=== PATIENT | female | born 1955 | race Caucasian/White ===

== ENCOUNTER 2017-06-24 12:52 | Outpatient (CLI) | payer BC | END 2017-06-24 12:53 | disposition home or self-care (01) | LOC: BICMAMMO 12:52 | PROVIDERS: ATTEND Family Medicine | DX: Z12.31 Encounter for screening mammogram for malignant neoplasm of breast (principal); Z13.820 Encounter for screening for osteoporosis; Z80.3 Family history of malignant neoplasm of breast | CPT/HCPCS: 77063; 77067; 77080 ==

== ENCOUNTER 2018-07-27 13:41 | Outpatient (CLI) | payer BC ==
--- NOTE | 2018-07-27 16:02 | MMO ---
Bilateral MAMMO Bilat Screen [facility]. CLINICAL HISTORY: Patient is 63 years old and is seen for screening. The patient has the following family history of breast cancer: paternal grandmother. The patient has no personal history of cancer. VIEWS: The views performed were: bilateral craniocaudal with tomosynthesis and bilateral mediolateral oblique with tomosynthesis. FILMS COMPARED: The present examination has been compared to prior imaging studies performed at [facility] on 06/24/2017, and at [facility] on 06/19/2013 and 06/25/2015. MAMMOGRAM FINDINGS: There are scattered fibroglandular densities. Benign calcifications are noted bilaterally. Nodularity is stable. There are no suspicious masses, suspicious calcifications, or new areas of architectural distortion. IMPRESSION: THERE IS NO MAMMOGRAPHIC EVIDENCE OF MALIGNANCY. A ROUTINE FOLLOW-UP MAMMOGRAM IN 1 YEAR IS RECOMMENDED. THE RESULTS OF THIS EXAM WERE SENT TO THE PATIENT. ACR BI-RADS Category 2 - Benign finding MAMMOGRAPHY NOTE: 1. A negative mammogram report should not delay a biopsy if a dominant of clinically suspicious mass is present. 2. Approximately 10% to 15% of breast cancers are not detected by mammography. 3. Adenosis and dense breasts may obscure an underlying neoplasm.
--- NOTE | 2018-07-27 16:44 | BD ---
BONE DENSITOMETRY USING DEXA: Date: 07/27/18 HISTORY: Postmenopausal screening for osteoporosis. FINDINGS: Lumbar Spine: BMD (g/cm2) L1 1.321 T-Score: 3.0 Z-Score: 4.5 L2 1.387 T-Score: 3.3 Z-Score: 4.9 L3 1.296 T-Score: 1.9 Z-Score: 3.7 L4 1.091 T-Score: 0.3 Z-Score: 2.1 L1-L4 1.266 T-Score: 2.0 Z-Score: 3.7 Femoral Neck: 0.730 T-Score: -1.1 Z-Score: 0.4 Total Femur: 0.870 T-Score: -0.7 Z-Score: 0.6 There has been interval improvement of 3.1% in the bone mineral density of the lumbar spine and a red uction of 13.1% in the bone mineral density of the proximal femur since 06/25/15. The 10 year fracture risk for a major osteoporotic fracture is 8.1% and for a hip fracture is 0.6%. IMPRESSION: Osteopenia. POS: OFF
== END 2018-07-27 13:42 | disposition home or self-care (01) ==
LOC: BICMAMMO 13:41
PROVIDERS: ATTEND Family Medicine
DX: Z12.31 Encounter for screening mammogram for malignant neoplasm of breast (principal); Z13.820 Encounter for screening for osteoporosis; M85.89 Other specified disorders of bone density and structure, multiple sites; Z80.3 Family history of malignant neoplasm of breast
CPT/HCPCS: 77063; 77067; 77080

== ENCOUNTER 2018-08-22 15:54 | Outpatient (CLI) | payer BC ==
--- NOTE | 2018-08-22 16:13 | RAD ---
LEFT HIP 2 VIEWS: History: left hip pain FINDINGS: There are degenerative changes in the left hip joint. These are manifested blastoid formati on and joint space narrowing. No fracture or dislocation or bony destruction is identified. IMPRESSION: Left hip osteoarthritis.
--- NOTE | 2018-08-22 16:13 | RAD ---
RIGHT HIP 2 VIEWS: HISTORY: Right hip pain FINDINGS: There are degenerative changes in the right hip. No fracture, dislocation or bony destruction is iden tified. IMPRESSION: Right hip osteoarthritis
== END 2018-08-22 15:55 | disposition home or self-care (01) ==
LOC: BICRAD 15:54
PROVIDERS: ATTEND Family Medicine
DX: M25.552 Pain in left hip (principal); M25.551 Pain in right hip; M16.0 Bilateral primary osteoarthritis of hip

== ENCOUNTER 2020-05-19 05:27 | Inpatient (IN) | payer MEDICARE, BC ==
[2020-05-15 13:16] VITALS: BMI 24.5
[2020-05-19] MEDS ORDERED: Midazolam HCl 2 mg/2 ml Vial ONE (05:49)
[2020-05-19] MEDS ORDERED: Lidocaine 2% Jelly 5 ML TUBE ONE (05:49)
[2020-05-19] MEDS ORDERED: Ropivacaine 0.2% HCl/PF 20 ML ONE (05:49)
[2020-05-19] MEDS ORDERED: Fentanyl 100 MCG/2 ML VIAL ONE (05:49)
[2020-05-19] MEDS ORDERED: Sodium Chloride 0.9% 100 ML ONE (05:58)
[2020-05-19] MEDS ORDERED: Vancomycin 1 GM/200 ML BAG ONE (05:58)
[2020-05-19] MEDS ORDERED: Tranexamic Acid 1,000 MG/10 ML VIAL ONE (05:58)
[2020-05-19] MEDS ORDERED: Hydrocerin (Eucerin) Cream 120 gm Jar TOP PRN (08:45)
[2020-05-19] MEDS ORDERED: HYDROcodone/Acetaminophen 5/325 mg Tablet PO PRN ×2 (08:45)
[2020-05-19] MEDS ORDERED: traMADol HCl 50 MG TAB PO PRN ×2 (08:45)
[2020-05-19] MEDS ORDERED: Promethazine HCl 25 MG SUPP PR PRN (08:45)
[2020-05-19] MEDS ORDERED: diphenhydrAMINE 50 MG/ML VIAL IVP PRN (08:45)
[2020-05-19] MEDS ORDERED: Zolpidem Tartrate 5 MG TAB PO PRN ×2 (08:45→09:00)
[2020-05-19] MEDS ORDERED: Naloxone HCl 0.4 mg/ml Vial IVP PRN (08:45)
[2020-05-19] MEDS ORDERED: diphenhydrAMINE 50 MG/ML VIAL IM PRN (08:45)
[2020-05-19] MEDS ORDERED: Ondansetron PF 4 MG/2 ML Vial IVP PRN ×2 (08:45→09:00)
[2020-05-19] MEDS ORDERED: Naloxone HCl 0.4 mg/ml Vial IV PRN (08:45)
[2020-05-19] MEDS ORDERED: Promethazine HCl 25 MG/ML VIAL IM PRN ×2 (08:45→09:00)
[2020-05-19] MEDS ORDERED: Bupivacaine 0.25% 10 ML VIAL EPIDURAL PRN (08:45)
[2020-05-19] MEDS ORDERED: Acetaminophen 325 MG TAB PO PRN (09:00)
[2020-05-19] MEDS ORDERED: HYDROcodone/Acetaminophen 10/325 mg Tablet PO PRN ×2 (09:00)
[2020-05-19] MEDS ORDERED: diphenhydrAMINE 25 MG CAP PO PRN (09:00)
[2020-05-19] MEDS ORDERED: Bupivacaine 0.5% 10 ML VIAL ONE (09:01)
[2020-05-19] MEDS ORDERED: Acetaminophen ER (8hr) 650 MG TAB PO PRN (09:02)
--- NOTE | 2020-05-19 09:33 | RAD ---
LEFT HIP: DATE: 05/19/2020 HISTORY: Postop hip replacement. COMPARISON: Preop films. FINDINGS/IMPRESSION: Left hip prosthesis is in place. Components show adequate position and alignment. POS: AGW
--- NOTE | 2020-05-19 09:38 | OP ---
DATE OF PROCEDURE: 05/19/2020 TITLE OF PROCEDURE: Left total hip arthroplasty using a Laci Accolade II stem, size 4 with a 52 mm Trident II cup, and a standard 36 mm ceramic head. HIGH RAW SUGAR BOILER: Helen Parikh PA-C BLOOD LOSS: Less than 200. SPECIMEN: None. DRAINS: None. COMPLICATION: None. The dam tender assistant/co-surgeon was present through the entire procedure and was responsible for providing exposure, tissue retraction and any necessary limb or tissue manipulation required to obtain necessary reduction or hardware placement. The dam tender assistant/co-surgeon also provided bleeding control, tissue closure, and suturing in conjunction with the primary surgeon. PROCEDURE IN DETAIL: After informed consent was obtained in the preoperative holding area, the patient was taken to the operative suite where general anesthesia was induced. The patient was then positioned in the lateral decubitus position. The hip was then prepped and draped in usual sterile fashion. The patient received preoperative antibiotics. Prior to incision, time-out was called and all members of the surgical team agreed upon site, surgeon, and patient. After this, a longitudinal incision was made directly over the trochanter, noted by palpation extending 2 fingerbreadths above and below the trochanter. The deeper subcutaneous layer was undermined with Bovie electrocautery. The iliotibial band was encountered and incised sharply and the plane below this was developed bluntly. A Charnley retractor was placed to hold this opened. The lateral aspect of the trochanter and the abductor muscles were encountered and then reflected anteriorly off the trochanter using Bovie electrocautery. Once this was completed, the anterior capsule was then encountered and identified and copious capsulotomy was carried out, exposing the femoral neck and head. Dislocation maneuver was then performed and an in situ provisional neck cut was then made using the oscillating saw. Attention was then turned to acetabular preparation and sequential reaming was carried out up to the appropriate diameter. A trial was then malleted into place with good firm resistance and no pullout. The permanent acetabular shell was then malleted squarely into place, as was the appropriate liner. Once completed, the wound was copiously irrigated and attention was then turned to femoral preparation. Flexion and external rotation were performed of the exposed thigh and femoral elevators were then placed at the proximal aspect of the wound. Canal finder was used to establish the length of the canal and sequential reaming was carried out, followed by broaching. Once the appropriate stability was established with the trial broaches with flexion, extension and rotational stability, we did trial with neutral and 2 mm offset incremental necks. Once the appropriate size was decided upon, with good stability noted with flexion, extension, internal and external rotation and shuck being negative, we removed the femoral trial broach and malletted into place the permanent prosthesis with good firm fit, which was also stable to rotation. Again, the hip felt very stable to flexion, extension, internal and external rotation. Leg lengths appeared near anatomic clinically and we were quite happy with prosthesis placement. Copious irrigation was then carried out through the entirety of the wound. Primary closure of the abductors was accomplished with interrupted #2 Vicryl [id number] stitches and the IT band was then closed with interrupted #2 Vicryl, oversewn with a #2 running barbed Quill stitch. Subcutaneous fascia was closed with running barbed Quill stitch and a subcuticular Monocryl barbed Quill stitch was used for skin closure and augmented with skin cement. A sterile dressing was applied. The procedure was terminated without any complication. All counts were correct. The patient was awakened in the operative suite and taken to the recovery room in stable condition. Job ID: [id number]
[2020-05-19] MEDS ORDERED: Rocuronium Bromide 10 MG/ML (10ML VIAL) ONE (10:37)
[2020-05-19] MEDS ORDERED: ePHEDrine 50 MG/ML VIAL ONE (10:37)
[2020-05-19] MEDS ORDERED: PROPOFOL 200 MG/20 ML VIAL ONE (10:37)
[2020-05-19] MEDS ORDERED: Glycopyrrolate 0.2 MG/ML 5 ML SYRINGE ONE (10:37)
[2020-05-19] MEDS ORDERED: Dexamethasone 20 MG/5 ML VIAL ONE (10:37)
[2020-05-19] MEDS ORDERED: Ondansetron PF 4 MG/2 ML Vial ONE (10:37)
[2020-05-19] MEDS: Aspirin 81 mg Enteric Coated Tablet PO SCH ×2 (11:02→21:12)
[2020-05-19] MEDS: Sodium Chloride 0.9% 1,000 ML IV SCH ×2 (11:02→18:09)
[2020-05-19] MEDS ORDERED: Lidocaine 1.5% w/Epi 1:200K 30 ML VIAL (Epid Use) ONE (11:24)
[2020-05-19] MEDS: Ketorolac Tromethamine 30 MG/ML VIAL IVP SCH ×2 (12:09→17:35)
[2020-05-19] MEDS: CEFAZOLIN 2 GM in Premix Bag 1 BAG IVPB SCH ×2 (13:46→21:13)
[2020-05-20] MEDS: Acetaminophen 500 MG TAB PO PRN ×2 (00:04→06:25)
[2020-05-20] MEDS: diphenhydrAMINE 25 MG CAP PO PRN ×2 (00:04→13:32)
[2020-05-20] MEDS: Ketorolac Tromethamine 30 MG/ML VIAL IVP SCH ×4 (00:05→17:46)
[2020-05-20] MEDS: fentaNYL Citrate/PF 500 MCG, Bupivacaine 10 ML in Sodium Chloride 0.9% 80 ML EPIDURAL SCH ×2 (01:49→19:21)
[2020-05-20] MEDS: Sodium Chloride 0.9% 1,000 ML IV SCH ×2 (05:06→13:55)
[2020-05-20 05:53] LABS: Hemoglobin 10.8 g/dL (12.0-16.0); Mean Corpuscular HGB CONC 33.1 g/dL (32.0-36.0); Mean Corpuscular Hemoglobin 30.3 pg (27.0-31.0); Mean Corpuscular Volume 91.6 fL (78.0-98.0); Mean Platelet Volume 7.3 fL (7.4-10.4); Platelet Count 236 thou/uL (130-400); RBC Distribution Width 11.6 % (11.5-14.5); Red Blood Cell (RBC) Count 3.55 mill/uL (4.20-5.40); White Blood Cell (WBC) Count 12.6 thou/uL (4.8-10.8)
[2020-05-20] MEDS: Ferrous Gluconate 324 MG TAB PO SCH ×2 (08:55→17:46)
[2020-05-20] MEDS: Multivitamin W/ Minerals 1 TAB PO SCH (08:55)
[2020-05-20] MEDS: Aspirin 81 mg Enteric Coated Tablet PO SCH ×2 (08:55→20:23)
[2020-05-20] MEDS: Senokot S 8.6-50 MG TAB PO SCH ×2 (08:55→20:23)
[2020-05-20] MEDS: Polyethylene Glycol 3350 17 GM Packet PO PRN (16:31)
[2020-05-21] MEDS: Ketorolac Tromethamine 30 MG/ML VIAL IVP SCH ×2 (00:04→05:12)
[2020-05-21] MEDS: Sodium Chloride 0.9% 1,000 ML IV SCH ×2 (01:25→11:12)
[2020-05-21 05:29] LABS: Hemoglobin 10.8 g/dL (12.0-16.0); Mean Corpuscular HGB CONC 33.2 g/dL (32.0-36.0); Mean Corpuscular Hemoglobin 30.8 pg (27.0-31.0); Mean Corpuscular Volume 92.7 fL (78.0-98.0); Mean Platelet Volume 7.7 fL (7.4-10.4); Platelet Count 212 thou/uL (130-400); RBC Distribution Width 11.7 % (11.5-14.5); Red Blood Cell (RBC) Count 3.51 mill/uL (4.20-5.40); White Blood Cell (WBC) Count 10.6 thou/uL (4.8-10.8)
[2020-05-21] MEDS: Senokot S 8.6-50 MG TAB PO SCH (08:06)
[2020-05-21] MEDS: Multivitamin W/ Minerals 1 TAB PO SCH (08:06)
[2020-05-21] MEDS: Aspirin 81 mg Enteric Coated Tablet PO SCH (08:06)
[2020-05-21] MEDS: Ferrous Gluconate 324 MG TAB PO SCH (08:06)
[2020-05-21] MEDS: Polyethylene Glycol 3350 17 GM Packet PO PRN (08:06)
[2020-05-21] MEDS ORDERED: HYDROcodone/Acetaminophen 10/325 mg Tablet PO PRN ×2 (10:45)
[2020-05-21 11:53] VITALS: TEMP 99.1
[2020-05-21] MEDS ORDERED: Bisacodyl 10 MG SUPP PR PRN (12:15)
[2020-05-21 12:19] VITALS: BP 144/61
== END 2020-05-21 14:35 | disposition home or self-care (01) | DRG 470 ==
LOC: SDC 05:27 → SURG A 09:00
PROVIDERS: ADMIT Orthopaedic Surgery; ATTEND Orthopaedic Surgery
PROC: 0SRB039 Replacement of Left Hip Joint with Ceramic Synthetic Substitute, Cemented, Open Approach (ICD-10-PCS; principal; 2020-05-19)
DX: M16.12 Unilateral primary osteoarthritis, left hip (principal); Z20.822 Contact with and (suspected) exposure to COVID-19; I10 Essential (primary) hypertension; M51.36 Other intervertebral disc degeneration, lumbar region; E66.3 Overweight; Z68.24 Body mass index [BMI] 24.0-24.9, adult; Z79.899 Other long term (current) drug therapy
CPT/HCPCS: 36415; 85027; J0690; J1100; J1885; J2001; J2250; J2405; J2704; J2795; J3010; J3370; J3490; Q0163

== ENCOUNTER 2020-07-29 10:28 | Outpatient (CLI) | payer MEDICARE, BC | END 2020-07-29 10:29 | disposition home or self-care (01) | LOC: BICMAMMO 10:28 | PROVIDERS: ATTEND Family Medicine | DX: Z12.31 Encounter for screening mammogram for malignant neoplasm of breast (principal); N95.9 Unspecified menopausal and perimenopausal disorder; M85.851 Other specified disorders of bone density and structure, right thigh; Z80.3 Family history of malignant neoplasm of breast | CPT/HCPCS: 77063; 77067; 77080 ==

== ENCOUNTER 2023-02-02 13:35 | Outpatient (CLI) | payer MEDICARE, BC | END 2023-02-02 13:36 | disposition home or self-care (01) | LOC: BICMAMMO 13:35 | PROVIDERS: ATTEND Family Medicine | DX: Z12.31 Encounter for screening mammogram for malignant neoplasm of breast (principal); Z13.820 Encounter for screening for osteoporosis; Z78.0 Asymptomatic menopausal state; Z80.3 Family history of malignant neoplasm of breast; M85.89 Other specified disorders of bone density and structure, multiple sites | CPT/HCPCS: 77063; 77067; 77080 ==

== ENCOUNTER 2023-05-16 08:23 | Outpatient (CLI) | payer MEDICARE | END 2023-05-16 08:24 | disposition home or self-care (01) | LOC: NM 08:23 | PROVIDERS: ATTEND Orthopaedic Surgery | DX: Z47.1 Aftercare following joint replacement surgery (principal); Z96.642 Presence of left artificial hip joint | CPT/HCPCS: 78315; A9503 ==

== ENCOUNTER 2024-12-17 13:13 | Outpatient (CLI) | payer MEDICARE ==
[2024-12-17 14:26] LABS: #Basophils 0.04 10x3/uL (0.0-0.2); #Eosinophils 0.14 10x3/uL (0.0-0.7); #Monocytes 0.50 10x3/uL (0.11-0.59); #Neutrophils 5.40 10x3/uL (1.40-6.50); %Basophils 0.5 % (0.0-1.0); %Eosinophils 1.9 % (0.0-10.0); %Lymphocytes 18.3 % (21.0-51.0); %Monocytes 6.7 % (0.0-10.0); %Neutrophils 72.3 % (42.0-75.0); Hematocrit 35.4 % (36.0-47.0); Hemoglobin 11.3 g/dL (12.0-16.0); Mean Corpuscular Hemoglobin 29.0 pg (27.0-31.0); Mean Corpuscular Volume 91.0 fL (78.0-98.0); Platelet Count 321 10x3/uL (130-400); Red Blood Cell (RBC) Count 3.89 mill/uL (4.20-5.40); White Blood Cell (WBC) Count 7.47 10x3/uL (4.8-10.8)
[2024-12-17 14:43] LABS: INR-International Normal Ratio 1.0; Prothrombin Time 13.4 sec (12.0-14.7)
[2024-12-17 14:46] LABS: ALT (SGPT) 8 U/L (Less than 34); AST (SGOT) 15 U/L (11-34); Albumin 3.7 g/dL (3.1-4.5); Alkaline Phosphatase 81 U/L (40-110); Anion Gap 11 mmol/L (10-20); BUN (Urea Nitrogen) 10 mg/dL (9.8-20.1); Bilirubin, Total 0.6 mg/dL (0.3-1.2); Calc. Creatinine Clearance 0 mL/min (70-130); Calcium 9.2 mg/dL (7.8-10.44); Carbon Dioxide 26 mmol/L (23-31); Chloride 107 mmol/L (98-107); Globulin 2.9 g/dL (2.4-3.5); Glucose 110 mg/dL (80-115); Potassium 3.7 mmol/L (3.5-5.1); Sodium 140 mmol/L (136-145)
== END 2024-12-17 13:14 | disposition home or self-care (01) ==
LOC: LABBT 13:13
PROVIDERS: ATTEND Student in an Organized Health Care Education/Training Program
DX: Z01.818 Encounter for other preprocedural examination (principal); M16.11 Unilateral primary osteoarthritis, right hip
CPT/HCPCS: 71046; 87081; 93005; 93010

== ENCOUNTER 2024-12-24 05:24 | Observation (INO) | payer MEDICARE ==
[2024-12-17 13:34] VITALS: BMI 25.0
[2024-12-24] MEDS ORDERED: Acetaminophen 500 MG TAB ONE (06:17)
[2024-12-24] MEDS ORDERED: CEFAZOLIN 2 GM VIAL ONE (06:38)
[2024-12-24] MEDS ORDERED: Tranexamic Acid 1,000 MG/10 ML VIAL ONE ×2 (06:38→10:37)
[2024-12-24] MEDS ORDERED: Vancomycin 1 GM/200 ML (FROZEN) BAG ONE (06:39)
[2024-12-24] MEDS ORDERED: Ondansetron PF 4 MG/2 ML Vial ONE ×2 (06:52→11:20)
[2024-12-24] MEDS ORDERED: PROPOFOL 20 ML ONE (06:52)
[2024-12-24] MEDS ORDERED: fentaNYL PF 100 MCG/2 ML SYRINGE ONE ×2 (06:52→08:15)
[2024-12-24] MEDS ORDERED: Lidocaine 1% PF 5 ML VIAL ONE (06:52)
[2024-12-24] MEDS ORDERED: Albuterol HFA (OR) 200 PUFF INH ONE (07:10)
[2024-12-24] MEDS ORDERED: Glycopyrrolate 0.2 MG/ML 5 ML SYRINGE ONE (07:11)
[2024-12-24] MEDS ORDERED: PHENYLEPHRINE-NS 100 MCG/ML 10 ML SYRINGE ONE ×3 (07:27→09:25)
[2024-12-24] MEDS ORDERED: diphenhydrAMINE 25 MG CAP PO PRN (10:28)
[2024-12-24] MEDS ORDERED: Acetaminophen 325 MG TAB PO SCH (10:30)
[2024-12-24] MEDS ORDERED: Ketorolac Tromethamine 30 MG (1 mL) VIAL ONE (11:03)
[2024-12-24] MEDS: Acetaminophen 500 MG TAB PO SCH (12:15)
[2024-12-24] MEDS: PNEUMOC 20-VAL CONJ-DIP CRM/PF 0.5 ML SYRINGE IM ONE (13:35)
[2024-12-24] MEDS: oxyCODONE 5 MG TAB PO PRN (19:54)
[2024-12-24] MEDS: Ferrous Gluconate 324 MG TAB PO SCH (19:55)
[2024-12-24] MEDS: Aspirin 81 mg Enteric Coated Tablet PO SCH (19:55)
[2024-12-24] MEDS: Senokot S 8.6-50 MG TAB PO SCH (19:55)
[2024-12-25 05:58] LABS: Hematocrit 22.2 % (36.0-47.0); Hemoglobin 7.3 g/dL (12.0-16.0); Mean Corpuscular Hemoglobin 29.7 pg (27.0-31.0); Mean Corpuscular Volume 90.2 fL (78.0-98.0); Platelet Count 202 10x3/uL (130-400); Red Blood Cell (RBC) Count 2.46 mill/uL (4.20-5.40); White Blood Cell (WBC) Count 11.52 10x3/uL (4.8-10.8)
[2024-12-25 06:20] LABS: Anion Gap 9 mmol/L (10-20); BUN (Urea Nitrogen) 8 mg/dL (9.8-20.1); Calc. Creatinine Clearance 87 mL/min (70-130); Calcium 8.3 mg/dL (7.8-10.44); Carbon Dioxide 24 mmol/L (23-31); Chloride 107 mmol/L (98-107); Glucose 102 mg/dL (80-115); Potassium 4.0 mmol/L (3.5-5.1); Sodium 136 mmol/L (136-145)
[2024-12-25] MEDS: Multivitamin W/ Minerals 1 TAB PO SCH (09:26)
[2024-12-25 16:41] VITALS: BP 140/68; TEMP 97.5
[2024-12-26] MEDS ORDERED: Aspirin 81 mg Enteric Coated Tablet PO SCH (09:00)
[2024-12-26] MEDS ORDERED: Pantoprazole 40 MG DR.TAB PO SCH (09:00)
[2024-12-26] MEDS ORDERED: Losartan 25 MG TAB PO SCH (09:00)
== END 2024-12-25 16:20 | disposition home or self-care (01) ==
LOC: SDC 05:24 → SURG A 10:27
PROVIDERS: ADMIT Student in an Organized Health Care Education/Training Program; ATTEND Student in an Organized Health Care Education/Training Program
PROC: 0SR90JZ Replacement of Right Hip Joint with Synthetic Substitute, Open Approach (ICD-10-PCS; principal; 2024-12-24)
DX: M16.11 Unilateral primary osteoarthritis, right hip (principal); I10 Essential (primary) hypertension; I48.0 Paroxysmal atrial fibrillation; Z96.642 Presence of left artificial hip joint; Z79.899 Other long term (current) drug therapy
CPT/HCPCS: 27130; 72170; 73501; 80048; 85027; 97116; 97530; 97535; C1776; J1100; J1885; J2371; J2405; J2704; J3010; J3373 ×2; J7030; 36415; J0169; J0665

== ENCOUNTER 2025-03-25 16:56 | Emergency (ER) | payer MEDICARE ==
[2025-03-25 17:46] LABS: #Basophils 0.03 10x3/uL (0.0-0.2); #Eosinophils 0.08 10x3/uL (0.0-0.7); #Monocytes 0.51 10x3/uL (0.11-0.59); #Neutrophils 5.76 10x3/uL (1.40-6.50); %Basophils 0.4 % (0.0-1.0); %Eosinophils 1.0 % (0.0-10.0); %Lymphocytes 19.1 % (21.0-51.0); %Monocytes 6.5 % (0.0-10.0); %Neutrophils 72.9 % (42.0-75.0); Hematocrit 33.0 % (36.0-47.0); Hemoglobin 10.3 g/dL (12.0-16.0); Mean Corpuscular Hemoglobin 26.1 pg (27.0-31.0); Mean Corpuscular Volume 83.8 fL (78.0-98.0); Platelet Count 353 10x3/uL (130-400); Red Blood Cell (RBC) Count 3.94 mill/uL (4.20-5.40); White Blood Cell (WBC) Count 7.90 10x3/uL (4.8-10.8)
[2025-03-25 18:21] LABS: ALT (SGPT) 11 U/L (Less than 34); AST (SGOT) 19 U/L (11-34); Albumin 3.7 g/dL (3.1-4.5); Alkaline Phosphatase 75 U/L (40-110); Anion Gap 12 mmol/L (10-20); BUN (Urea Nitrogen) 16 mg/dL (9.8-20.1); Bilirubin, Total 0.4 mg/dL (0.3-1.2); Calc. Creatinine Clearance 0 mL/min (70-130); Calcium 9.0 mg/dL (7.8-10.44); Carbon Dioxide 25 mmol/L (23-31); Chloride 109 mmol/L (98-107); Globulin 2.8 g/dL (2.4-3.5); Glucose 164 mg/dL (80-115); Potassium 4.0 mmol/L (3.5-5.1); Sodium 142 mmol/L (136-145)
== END 2025-03-25 18:45 | disposition home or self-care (01) ==
LOC: ERS 16:56
DX: R55 Syncope and collapse (principal); R29.700 NIHSS score 0; I10 Essential (primary) hypertension; I48.91 Unspecified atrial fibrillation
CPT/HCPCS: 80053; 84484; 85025; 93005; 96360